=== PATIENT | male | born 1960 | race Two or more races ===

== ENCOUNTER 2022-05-02 09:11 | Outpatient (CLI) | payer OTHER ==
[~2022-05-02 09:11] MED LIST: COZAAR50 MG PO
== END 2022-05-02 09:21 | disposition home or self-care (01) ==
LOC: PPH VACUNA 09:11
PROVIDERS: ATTEND Emergency Medicine Pediatric Emergency Medicine
DX: Z23 Encounter for immunization (principal)

== ENCOUNTER 2022-05-10 04:05 | Emergency (ER) | payer OTHER ==
[~2022-05-10] VITALS: Ht 165.1 cm; Wt 79.4 kg
== END 2022-05-10 11:49 | disposition home or self-care (01) ==
LOC: ER 04:05
DX: R50.9 Fever, unspecified (principal); R19.7 Diarrhea, unspecified; Z20.822 Contact with and (suspected) exposure to COVID-19

== ENCOUNTER 2024-11-02 07:50 | Emergency (ER) | payer OTHER ==
[~2024-11-02] VITALS: Ht 294.6 cm; Wt 72.6 kg
[2024-11-02] MEDS ORDERED: KETOROLAC TROMETHAMINE 60 MG VIAL IM STA (08:43)
[2024-11-02] MEDS ORDERED: ORPHENADRINE CITRATE 30 MG/ML AMPUL IM STA (08:43)
== END 2024-11-02 09:02 | disposition home or self-care (01) ==
LOC: ER 07:50
DX: S73.192A Other sprain of left hip, initial encounter (principal); X58.XXXA Exposure to other specified factors, initial encounter; Y93.89 Activity, other specified; Y92.89 Other specified places as the place of occurrence of the external cause; Y99.8 Other external cause status; M79.652 Pain in left thigh

== ENCOUNTER → 2024-11-19 | Emergency (ER) | payer OTHER ==
[~2024-11-19] VITALS: Ht 157.5 cm; Wt 72.6 kg
[~2024-11-19] MED LIST changes: +DICLOFENAC SODI75 MG PO; +KETOROLAC TROMETHAMINE 60 MG VIAL IM ONE; +METOPROLOL TARTRATE 5MG/5ML AMPUL IV ONE
== END | disposition home or self-care (01) ==
LOC: ER 11:10
DX: M79.661 Pain in right lower leg (principal); I10 Essential (primary) hypertension

== ENCOUNTER 2025-03-22 07:01 | Emergency (ER) | payer OTHER ==
[~2025-03-22] VITALS: Ht 165.1 cm; Wt 77.1 kg
[~2025-03-22 07:01] MED LIST changes: -KETOROLAC TROMETHAMINE 60 MG VIAL IM ONE; -METOPROLOL TARTRATE 5MG/5ML AMPUL IV ONE
[2025-03-22] MEDS ORDERED: COZAAR100 MG PO (07:17)
[2025-03-22] MEDS ORDERED: NORVASC2.5 M1 PO (07:17)
[2025-03-22] MEDS ORDERED: CEFTRIAXONE SODIUM 1,000 MG VIAL IM ONE (09:15)
[2025-03-22] MEDS ORDERED: TETANUS & DIPHTHERIA TOX,ADULT 0.5 ML VIAL IM ONE (09:15)
[2025-03-22] MEDS ORDERED: LEVOFLOXACIN500 MG PO (09:55)
== END 2025-03-22 10:10 | disposition home or self-care (01) ==
LOC: ER 07:16
DX: S61.210A Laceration without foreign body of right index finger without damage to nail, initial encounter (principal); S61.212A Laceration without foreign body of right middle finger without damage to nail, initial encounter; W45.8XXA Other foreign body or object entering through skin, initial encounter; Y93.89 Activity, other specified; Y92.89 Other specified places as the place of occurrence of the external cause; Y99.9 Unspecified external cause status; I10 Essential (primary) hypertension